=== PATIENT | female | born 1960 | race Caucasian/White ===

== ENCOUNTER 2016-11-14 08:51 | Day surgery (SDC) | payer OTHER ==
[2016-11-14] MEDS ORDERED: NS 1000 ML 1,000 ML ONE (09:09)
[2016-11-14] MEDS ORDERED: DIPRIVAN VIAL 20 ML ONE (10:08)
[2016-11-14 14:04] VITALS: BP 118/78
== END 2016-11-14 10:50 | disposition home or self-care (01) ==
LOC: SURG1 08:51
PROVIDERS: ATTEND Internal Medicine Gastroenterology
PROC: 0DJ08ZZ Inspection of Upper Intestinal Tract, Via Natural or Artificial Opening Endoscopic (ICD-10-PCS; principal; 2016-11-14 11:15)
PROC: 0DB68ZX Excision of Stomach, Via Natural or Artificial Opening Endoscopic, Diagnostic (ICD-10-PCS; principal; 2016-11-14 11:15)
DX: R10.84 Generalized abdominal pain (principal); R11.0 Nausea; R10.13 Epigastric pain; R10.12 Left upper quadrant pain; B18.2 Chronic viral hepatitis C; K31.89 Other diseases of stomach and duodenum; I85.00 Esophageal varices without bleeding; K29.60 Other gastritis without bleeding; K29.80 Duodenitis without bleeding
CPT/HCPCS: A4217; J3490